=== PATIENT | female | born 1945 | race Caucasian/White ===

== ENCOUNTER 2016-12-03 12:54 | Emergency (ER) | payer OTHER ==
[2016-12-03 15:16] LABS: URINE CULTURE PL NEEDED? NO; URINE SOURCE CLEAN CATCH
[2016-12-03 15:30] LABS: BASO% 1.4 % (0.0-0.8); EOS# 0.08 X1000 (0.0-0.7); EOS% 1.6 % (0.0-10.0); HEMATOCRIT 40.7 % (37.0-47.0); HEMOGLOBIN 14.3 g/dL (12.0-16.0); LYMPH# 1.67 X1000 (1.2-3.4); LYMPH% 33.8 % (20.5-51.1); MANUAL DIFF NEEDED? NO; MCHC 35.1 g/dL (33-37); MCV 85.5 FL (81-99); MONO# 0.69 X1000 (0.11-0.59); MPV 9.3 FL (7.4-10.4); NEUT% 49.2 % (42.2-75.2); PLT 299 X1000 (130-400); RBC 4.76 XMIL (4.2-5.4)
[2016-12-03 15:53] LABS: BILIRUBIN URINE NEGATIVE (NEGATIVE); BLOOD URINE NEGATIVE (NEGATIVE); CLARITY VERY CLOUDY (CLEAR); COLOR YELLOW; GLUCOSE URINE NEGATIVE (NEGATIVE); LEUKOCYTES URINE NEGATIVE (NEGATIVE); NITRITE URINE NEGATIVE (NEGATIVE); PROTEIN URINE 1+(30 mg/dL) mg/dL (NEGATIVE); SP GRAVITY URINE 1.015; UROBILINOGEN URINE NORMAL
[2016-12-03 15:54] LABS: URINE EPITHELIAL CELLS <10 /HPF (<10)
[2016-12-03 15:55] LABS: AGAP 14; ALBUMIN 3.8 g/dL (3.5-5.0); ALKALINE PHOSPHATASE 93 U/L (32-104); AMYLASE 38 U/L (20-200); BUN 13 mg/dL (8-22); CALCIUM 8.4 mg/dL (8.8-10.2); CHLORIDE 97 mmol/L (98-107); COSMO 275; GOT 34 U/L (10-30); GPT 36 U/L (10-36); LIPASE 16 U/L (13-60); POTASSIUM 3.5 mmol/L (3.5-5.1); SODIUM 135 mmol/L (136-145); TCO2 24 mmol/L (25-35); TOTAL PROTEIN 6.8 g/dL (6.3-8.3)
[2016-12-03] MEDS ORDERED: NS 1,000 ML IV ONE (16:49)
--- NOTE | 2016-12-03 17:14 | PROVIDER DOCUMENTATION ---
Addendum entered and electronically signed by Lucretia Leyva CRNP 19:32: Progress - CT/MRI 1 CT Study: Abdomen, Pelvis Impression: Abnormal (adenitis per Dr. Austin) Original Note: HPI-Abdominal Pain/GI Problem - General Source: patient - History of Present Illness-ABD Nature of Presenting Problems: 71 yo WF presents to ED with cc of 6 days of yellow diarrhea with mucuslike quality. Pt reports she has been having 10 episodes a day. Pt reports she had vomiting for the first 2 days that has since resolved, and fever for 1 day that has since resolved. Pt reports she went to Dr. Garcia[facility] clinic today, and they sent her here. Upon arrival to ED, pt is in mild distress. Pt denies any recent abx, any recent hospital stay, and contact with anyone with recent hospital stay or C. diff dx. Abdominal Pain Onset Location: reports: LLQ, generalized abdomen Pain Radiation: reports: no radiation Severity in ED: reports: moderate Onset/Duration: reports: abrupt, 6 days ago Timing: reports: still present Activities at Onset: reports: none Exposure to sick contacts?: No Modifying Factors: improves with: nothing Associated Symptoms: reports: diarrhea, dizziness Dark Stools Present?: reports: none noticed Rectal Bleeding: reports: none # of Diarrhea Episodes: 10 (every day) Rectal Pain: reports: none <Lis Montalvo - Last Filed: 12/03/16 17:39> <Lucretia Leyva - Last Filed: 12/03/16 19:30> - General Chief Complaint: N/V/D Stated Complaint: N,V,D Time Seen by Provider: 12/03/16 14:57 Allergies/Adverse Reactions: Patient Allergies Allergy/AdvReac Type Severity Reaction Status Date / Time codeine Allergy NAUSEA/VOMI Verified 12/03/16 13:12 TING Sulfa (Sulfonamide Allergy Unknown Verified 12/03/16 13:12 Antibiotics) Home Medications: Home Medication List Medication Instructions Recorded Confirmed Last Taken Type Cyclobenzaprine [Flexeril] 10 mg PO Q6H PRN PRN #20 tablet 10/07/14 Unknown Rx Cyclosporine 0.05% Oph Drops 1 each BOTH EYES BID 10/07/14 10/07/14 1 Day Ago History [Restasis 0.05% Oph Drops] Estrogens, Conjugated [Premarin] 1 tab PO DAILY 10/07/14 10/07/14 1 Day Ago History Fluticasone 50 Mcg Nasal [place] 2 spray ALIE DAILY 10/07/14 10/07/14 1 Day Ago History [Flonase] Glipizide 2.5 mg PO DAILY 10/07/14 10/07/14 1 Day Ago History Hydrochlorothiazide 12.5 mg PO DAILY 10/07/14 10/07/14 1 Day Ago History Ipratropium 0.06% Nasal [place] 2 sprays ALIE DAILY PRN 10/07/14 10/07/14 Unknown History [Atrovent 0.06% Nasal [place]] Levothyroxine [Synthroid] 125 microgm PO DAILY 10/07/14 10/07/14 1 Day Ago History Metformin E.r. [Glucophage Xr] 1,000 mg PO BID CC 10/07/14 10/07/14 1 Day Ago History Nifedipine [Procardia Xl] 60 mg PO DAILY PRN 10/07/14 10/07/14 4 Days Ago History Propranolol L.a. [Inderal LA] 80 mg PO DAILY 10/07/14 10/07/14 1 Day Ago History Levofloxacin [Levaquin] 750 mg PO DAILY #10 tablet 12/03/16 Unknown Rx Metronidazole [Flagyl] 500 mg PO BID #20 tablet 12/03/16 Unknown Rx Review of Systems - Adult - REVIEW OF SYSTEMS - ADULT Constitutional: reports: no symptoms reported. denies: chills, fever Eyes: reports: no symptoms reported. denies: discharge, blurred vision Ears, Nose, Mouth & Throat: reports: no symptoms reported. denies: ear pain, nose pain Cardiovascular: reports: no symptoms reported. denies: chest pain, irregular heart rate Respiratory: reports: no symptoms reported. denies: cough, wheezing Gastrointestinal: reports: abdominal pain, diarrhea (10 episodes a day for 6 days). denies: hematemesis, rectal bleeding Genitourinary: reports: no symptoms reported. denies: dysuria, hematuria Musculoskeletal: reports: no symptoms reported. denies: bone pain, frequent leg cramps Integumentary: reports: no symptoms reported. denies: mole changes, skin sores/ ulcer Neurological: reports: dizziness/vertigo Psychiatric: reports: no symptoms reported. denies: anxiety, depression Endocrine: reports: no symptoms reported. denies: cold intolerance, heat intolerance Hematologic/Lymphatic: reports: no symptoms reported. denies: blood clots, low blood count Allergic/Immunologic: reports: no symptoms reported. denies: allergic reactions , food allergy All Other Systems: Reviewed and Negative <Lis Montalvo - Last Filed: 12/03/16 17:39> Past History - Adult - PAST MEDICAL HISTORY-ADULT Review of Records: reports: Old Records Reviewed, Nursing Assessment Review, Medications Reviewed Cardiovascular: reports: hyperlipidemia Musculoskeletal: reports: fibromyalgia Endocrine/Immune: reports: Diabetes Other Conditions: reports: other cancer (skin) - PRIOR SURGERIES/PROCEDURES Surgical/Procedure History: reports: hysterectomy, orthopedic (extremity) (hip replacement) - IMMUNIZATION STATUS Childhood Immunizations: See Nurse Assessment Flu Vaccine: See Nurse Assessment <Lis Montalvo - Last Filed: 12/03/16 17:39> Physical Exam-General - PHYSICAL EXAM-ADULT Initial Vital Signs Reviewed: Yes - CONSTITUTIONAL General Appearance: alert, mild distress, obese - EYES Eyes: PERRL/EOMI, pink conjunctivae - HEAD, EARS, NOSE, MOUTH & THROAT HENMT: normocephalic/atraumatic, moist mucous membranes, normal ENT inspection - NECK Neck: non-tender, full range of motion, supple - RESPIRATORY Respiratory: chest non-tender, lungs clear, normal breath sounds - CARDIOVASCULAR Cardiovascular: normal peripheral pulses, regular rate, rhythm - GASTROINTESTINAL (ABDOMEN) Abdominal Exam: normal bowel sounds, soft, tenderness (generalized, worst in LLQ ) - GENITOURINARY Female Genitalia/Pelvic Exam: deferred Male Genitalia: deferred Rectal Exam: deferred - LYMPHATIC Lymphatic: no adenopathy - MUSCULOSKELETAL Back Exam: normal inspection, no vertebral tenderness Extremity: normal range of motion, non-tender, normal gait - SKIN Integumentary: normal color, normal turgor, warm/dry - NEUROLOGIC Neurologic: grossly normal, no motor/sensory deficits - PSYCHIATRIC Psych/Mental Status: normal mood/affect, normal thought content, normal thought process, oriented x 3 <Lis Montalvo - Last Filed: 12/03/16 17:39> Progress - PLAN OF CARE/RESULTS Progress/Plan/Lab Results: Laboratory Tests 12/03/16 12/03/16 12/03/16 14:06 15:15 15:15 WBC 4.94 RBC 4.76 Hgb 14.3 Hct 40.7 MCV 85.5 MCH 30.0 MCHC 35.1 RDW Std Deviation 13.2 Plt Count 299 MPV 9.3 Immature Gran % (Auto) 0.0 Neut % (Auto) 49.2 Lymph % (Auto) 33.8 Butts % (Auto) 14.0 H Eos % (Auto) 1.6 Baso % (Auto) 1.4 H Immature Gran # (Auto) 0.00 Neut # (Auto) 2.43 Lymph # (Auto) 1.67 Butts # (Auto) 0.69 H Eos # (Auto) 0.08 Baso # (Auto) 0.07 Sodium 135 L Potassium 3.5 Chloride 97 L Carbon Dioxide 24 L Anion Gap 14 BUN 13 Creatinine 0.7 Estimated GFR/1.73 m2 > 60 BUN/Creatinine Ratio 19 Glucose 182 H Calculated Osmolality 275 Calcium 8.4 L Total Bilirubin 0.20 AST 34 H ALT 36 Alkaline Phosphatase 93 Total Protein 6.8 Albumin 3.8 Globulin 3.0 Albumin/Globulin Ratio 1.0 Amylase 38 Lipase 16 Urine Source CLEAN CATCH Urine Color YELLOW Urine Clarity VERY CLOUDY A Urine pH 6.0 Ur Specific [place] 1.015 Urine Protein 1+(30 mg/dL) A Urine Ketones TRACE Urine Blood NEGATIVE Urine Nitrite NEGATIVE Urine Bilirubin NEGATIVE Urine Urobilinogen NORMAL Urine Microscopic RBC Not Reportable Urine WBC NEGATIVE Ur Epithelial Cells <10 Urine Bacteria 2+ Urine Glucose NEGATIVE Orders Category Date Time Status Nursing [place] [place] [place] DIRECTED Care 12/03/16 19:28 Active NPO Diet 12/03/16 14:[address] ABD/PELVIS W/ IV CONT ONLY [CT] Stat Exams 12/03/16 16:49 Taken AMYLASE [CHEM] Stat Lab 12/03/16 15:15 Com[address] C DIFF TOXIN PL Stat Lab 12/03/16 16:48 Ordered CBC WITH ELECTRONIC DIFF [HEME] Stat Lab 12/03/16 15:15 Completed COMPREHENSIVE METABOLIC PANEL [CHEM] Stat Lab 12/03/16 15:15 Completed LIPASE [CHEM] Stat Lab 12/03/16 15:15 Completed OCCULT BLOOD SCREEN STOOL PL Stat Lab 12/03/16 16:48 Uncollected OVA AND PARASITE W/TRICHROME [STOOL] Stat Lab 12/03/16 19:29 Uncollected STOOL CULTURE [RM] Stat Lab 12/03/16 16:[address] W/POSS RFLX CULT [URINALYSIS] Stat Lab 12/03/16 14:06 Completed WBC STOOL [STOOL] Stat Lab 12/03/16 16:48 Uncollected 0.9% Sodium Chloride Inj [Ns] 1,000 ml Med 12/03/16 16:49 Discontinued IV 999 mls/hr Levofloxacin [Levaquin] Med 12/03/16 19:28 Discontinued 750 mg PO NOW ONE Metronidazole [Flagyl] Med 12/03/16 19:28 Discontinued 500 mg PO NOW ONE Vital Signs - 24 hr 12/03/16 12/03/16 12/03/16 13:09 15:40 19:19 Temperature 98.1 F 98.3 F Pulse Rate 67 58 L Pulse Rate [ 64 Sitting] Pulse Rate [ 63 Standing] Pulse Rate [ 57 L Supine] Respiratory 16 20 Rate Blood Pressure 152/68 156/77 Blood Pressure 144/79 [Sitting] Blood Pressure 151/74 [Standing] Blood Pressure 153/72 [Supine] O2 Sat by Pulse 98 98 Oximetry Review[address] case with Dr. Aviles, agrees with plan of care and treatment. <Lucretia Leyva - Last Filed: 12/03/16 19:30> Departure <Lis Montalvo - Last Filed: 12/03/16 17:39> - Departure Time of Disposition Order: 19:26 Certified Medical Emergency: Emergent <Lucretia Leyva - Last Filed: 12/03/16 19:30> - Departure DIAGNOSIS: Diarrhea, Adenitis Disposition: HOME 01 Condition: Stable Additional Instructions: Follow up with our primary care doctor. ED Follow Up Instructions: You have been treated by a care provider in the Emergency Department. These instructions are being provided to you so you can have an understanding of how to care for yourself upon discharge. Upon discharge from the Emergency Department, you are responsible for making arrangements for follow-up care by a physician of your choice. Take all prescribed medications as directed. Return to the Emergency Department immediately for any new or worsening symptoms. You may call the Physician Referral phone number at [phone] to obtain a list of Physicians who are taking new patients. Prescriptions: Metronidazole [Flagyl] 500 mg PO BID #20 tablet Levofloxacin [Levaquin] 750 mg PO DAILY #10 tablet Attestation - Scribe Verification/Attestation Scribe:: Lis Montalvo Acting as Scribe for:: Lucretia Leyva Scribe documention review:: This chart was documented by a scribe and accurately reflects the service the provider performed and the decisions made by the provider. - Physician/ VENKAT Attestation Patient care was provided by Advanced Practice Provider:: Yes Advanced Practice Provider:: Lucretia Leyva Advanced Practice Provider documentation review:: The Mid-level provider documentation, treatment plan and medical decision making was reviewed by the physician who agrees with all treatment and medical decision making by the MLP. <Lis Montalvo - Last Filed: 12/03/16 17:39> - Physician/ VENKAT Attestation Patient care was provided by Advanced Practice Provider:: Yes Advanced Practice Provider:: Lucretia Leyva Advanced Practice Provider documentation review:: The Mid-level provider documentation, treatment plan and medical decision making was reviewed by the physician who agrees with all treatment and medical decision making by the MLP. <Lucretia Leyva - Last Filed: 12/03/16 19:30> Physician Attestation
[2016-12-03 19:20] VITALS: BP 156/77
[2016-12-03] MEDS ORDERED: LEVAQUIN PO ONE (19:28)
[2016-12-03] MEDS ORDERED: FLAGYL PO ONE (19:28)
[2016-12-03] MEDS ORDERED: FLAGYL ONE (19:38)
--- NOTE | 2016-12-04 11:31 | Diag Imaging Result Document ---
PROCEDURE NAME: CT ABD/PELVIS W/ IV CONT ONLY - 12/03/2016 CT ABDOMEN AND PELVIS WITH IV CONTRAST ONLY: TECHNIQUE: Exam performed with intravenous contrast only per request of the referring provider. A dose reduction protocol was used. No comparison exam. FINDINGS: The visualized lung bases are clear. There are no substantial abnormalities of the liver, spleen, adrenal glands, or pancreas identified. The gallbladder is surgically absent. The common bile duct is mildly prominent which likely relates to the postcholecystectomy state. There are nonspecific small retroperitoneal lymph nodes. The bilateral kidneys enhance homogeneously. There is no hydronephrosis. There are lumbar spine degenerative changes noted, including some apparent associated spinal stenosis at L4-5. There is no evidence of bowel obstruction. The appendix is unremarkable. There is mild uncomplicated colonic diverticulosis. There is no substantial bowel wall thickening identified. There is no abscess identified. There is no free air or free fluid seen. There is mild mesenteric adenopathy. There are artifacts from metallic bilateral hip prostheses which limit detail at the mid and lower pelvis. The patient by history is status post partial hysterectomy. There is no abnormal pelvic mass or fluid collection identified. IMPRESSION: 1. Mild mesenteric adenopathy, suspicious for mesenteric adenitis. 2. No bowel obstruction. Unremarkable appendix. 3. Uncomplicated colonic diverticulosis. No abscess. No free air. 4. Lumbar spine degenerative changes noted, including apparent associated spinal stenosis at L4-5 The on-call radiologist provided preliminary results at 7:04 p.m. on 12/03/2016.
== END 2016-12-03 19:47 | disposition home or self-care (01) ==
LOC: P.ED 12:54
DX: R19.7 Diarrhea, unspecified (principal); I88.9 Nonspecific lymphadenitis, unspecified; E78.5 Hyperlipidemia, unspecified; M79.7 Fibromyalgia; E11.9 Type 2 diabetes mellitus without complications; Z85.828 Personal history of other malignant neoplasm of skin; Z96.649 Presence of unspecified artificial hip joint; Z79.899 Other long term (current) drug therapy; R10.84 Generalized abdominal pain; E66.9 Obesity, unspecified; R10.32 Left lower quadrant pain; Z79.51 Long term (current) use of inhaled steroids
CPT/HCPCS: 74177; 80053; 81001; 82150; 83690; 85025; 96360; J7030; Q9967